=== PATIENT | male | born 1965 | race Two or more races ===

== ENCOUNTER 2023-07-25 15:21 | Inpatient (IN) | payer OTHER ==
[2023-07-25 17:35] VITALS: BMI 22.9
[2023-07-25] MEDS ORDERED: ACETAMINOPHEN 325 MG TABLET (FP) PO PRN (18:22)
[2023-07-25] MEDS ORDERED: BENZONATATE 200 MG CAPSULE PO PRN (18:22)
[2023-07-25] MEDS ORDERED: MAG HYDROX/AL HYDROX/SIMETH 30 ML UNIT-DOSE CUP PO PRN (18:22)
[2023-07-25] MEDS ORDERED: guaiFENesin 600 MG TABLET.ER (FP) PO PRN (18:22)
[2023-07-25] MEDS ORDERED: LOPERAMIDE HCL 2 MG CAPSULE PO PRN (18:22)
[2023-07-25] MEDS ORDERED: POLYETHYLENE GLYCOL (HEALTHYLAX) 3350 17 GM PACKET PO PRN (18:22)
[2023-07-25] MEDS ORDERED: NICOTINE POLACRILEX 2 MG LOZENGE BC PRN (18:22)
[2023-07-25] MEDS ORDERED: BENZOCAINE/MENTHOL (CHLORASEPTIC ) LOZENGE MM PRN (18:22)
[2023-07-25] MEDS ORDERED: NICOTINE POLACRILEX 2 MG GUM BUC PRN (18:22)
[2023-07-25] MEDS ORDERED: DICYCLOMINE HCL 10 MG CAPSULE PO PRN (18:22)
[2023-07-25] MEDS ORDERED: ONDANSETRON *ODT* 4 MG TABLET SL PRN (18:22)
[2023-07-25] MEDS ORDERED: IBUPROFEN 400 MG TABLET (FP) PO PRN (18:22)
[2023-07-25] MEDS ORDERED: BISMUTH SUBSALICYLATE 524 MG/30 ML PO PRN (18:22)
[2023-07-25] MEDS ORDERED: IBUPROFEN 600 MG TABLET (FP) PO ONE (18:49)
[2023-07-25] MEDS: IBUPROFEN 600 MG TABLET (FP) PO ONE (18:51)
[2023-07-25] MEDS: P-EPHED 60MG/TRIPROLIDI 2.5MG TABLET PO PRN (22:11)
[2023-07-25] MEDS: MELATONIN 5 MG TABLETS PO SCH (22:12)
[2023-07-25] MEDS: THIAMINE 100 MG TABLET PO SCH (22:12)
[2023-07-26] MEDS: PRENATAL VITAMINS W/ FOLIC ACID TABLET (FP) PO SCH (10:30)
[2023-07-26 11:50] LABS: CHLORIDE 112 mmol/L (98-107); POTASSIUM 4.1 mmol/L (3.5-5.1); SODIUM 142 mmol/L (136-145)
[2023-07-26 11:52] LABS: CALCIUM 8.2 mg/dL (8.5-10.1)
[2023-07-26 11:53] LABS: ALBUMIN 2.2 g/dl (3.4-5.0); ANION GAP 3 mmol/L (4-13); CO2 28 mmol/L (21-32); GLUCOSE,RANDOM 86 mg/dL (74-106)
[2023-07-26 11:56] LABS: CREATININE 0.8 mg/dL (0.55-1.3); SGOT/AST 18 U/L (15-37); SGPT/ALT 25 U/L (13-61)
[2023-07-26 11:57] LABS: BILIRUBIN,TOTAL 0.4 mg/dL (0.2-1); TOT PROT 5.6 g/dl (6.4-8.2)
[2023-07-26 11:59] LABS: ALK PHOS 86 U/L (45-117)
[2023-07-26 12:01] LABS: HEMOGLOBIN 13.2 GM/dL (11.7-16.9); MCH 33.5 pg (25.7-33.7); MCHC 34.8 g/dl (32.0-35.9); MEAN CELL VOLUME 96.2 fl (80-96); MEAN PLT VOLUME 6.9 fl (7.5-11.1); PLATELET COUNT 269 10^3/uL (134-434); RBC 3.95 M/mm3 (4.00-5.60); RDW 12.8 % (11.9-15.9)
[2023-07-26] MEDS: diazePAM 5 MG TABLET PO SCH (17:44)
[2023-07-26] MEDS: MAGNESIUM HYDROX 2400MG/30ML ORAL SUSPENSION 30 ML CUP PO PRN (17:45)
[2023-07-27] MEDS: diazePAM 5 MG TABLET PO SCH (05:21)
[2023-07-27] MEDS: hydrOXYzine PAMOATE 25 MG CAPSULE (FP) PO PRN (09:14)
[2023-07-27] MEDS: METHOCARBAMOL 500 MG TABLET PO PRN (09:14)
[2023-07-28] MEDS: diazePAM 5 MG TABLET PO SCH (05:23)
[2023-07-28 11:52] LABS: BASO % 1.3 % (0-2.0); HEMATOCRIT 38.8 % (35.4-49); HEMOGLOBIN 13.5 GM/dL (11.7-16.9); LYMPH % 31.5 % (8-40); MCHC 34.7 g/dl (32.0-35.9); MEAN CELL VOLUME 95.3 fl (80-96); MEAN PLT VOLUME 7.2 fl (7.5-11.1); MONO % 13.8 % (3.8-10.2); NEUT % 49.4 % (42.8-82.8); PLATELET COUNT 270 10^3/uL (134-434); RBC 4.07 M/mm3 (4.00-5.60); WHITE BLOOD COUNT 4.9 K/mm3 (4.0-10.0)
[2023-07-29] MEDS: IBUPROFEN 600 MG TABLET (FP) PO PRN (05:27)
[2023-07-29] MEDS: diazePAM 5 MG TABLET PO ONE (05:27)
[2023-07-29 09:03] VITALS: BP 127/81; PULSE 70; RESP 18; TEMP 97.1
== END 2023-07-29 10:53 | disposition home or self-care (01) | DRG 774 ==
LOC: YASAS 15:21 → Y6N 18:45
PROVIDERS: ADMIT Allergy & Immunology; ATTEND Surgery
PROC: HZ2ZZZZ Detoxification Services for Substance Abuse Treatment (ICD-10-PCS; principal; 2023-07-25)
DX: F10.230 Alcohol dependence with withdrawal, uncomplicated (principal); F14.20 Cocaine dependence, uncomplicated; F12.20 Cannabis dependence, uncomplicated; F17.210 Nicotine dependence, cigarettes, uncomplicated; F19.282 Other psychoactive substance dependence with psychoactive substance-induced sleep disorder; F19.280 Other psychoactive substance dependence with psychoactive substance-induced anxiety disorder; F41.9 Anxiety disorder, unspecified; F90.9 Attention-deficit hyperactivity disorder, unspecified type
CPT/HCPCS: 36415; 71045-TC-FY; 80053; 80305; 80307; 85025; 85027; 86780; 93005; 93010

== ENCOUNTER 2024-06-17 15:39 | Inpatient (IN) | payer OTHER ==
[2024-06-17 16:55] VITALS: BMI 21.8
[2024-06-17] MEDS ORDERED: BENZOCAINE/MENTHOL (CHLORASEPTIC ) LOZENGE MM PRN (17:16)
[2024-06-17] MEDS ORDERED: guaiFENesin 600 MG TABLET.ER (FP) PO PRN (17:16)
[2024-06-17] MEDS ORDERED: MAG HYDROX/AL HYDROX/SIMETH 30 ML UNIT-DOSE CUP PO PRN (17:16)
[2024-06-17] MEDS ORDERED: IBUPROFEN 400 MG TABLET (FP) PO PRN (17:16)
[2024-06-17] MEDS ORDERED: ACETAMINOPHEN 325 MG TABLET (FP) PO PRN (17:16)
[2024-06-17] MEDS ORDERED: P-EPHED 60MG/TRIPROLIDI 2.5MG TABLET PO PRN (17:16)
[2024-06-17] MEDS ORDERED: NALOXONE (NARCAN) HCL 4 MG/0.1 ML SPRAY NS PRN (17:16)
[2024-06-17] MEDS ORDERED: NICOTINE POLACRILEX 2 MG GUM BUC PRN (17:16)
[2024-06-17] MEDS ORDERED: MAGNESIUM HYDROX 2400MG/30ML ORAL SUSPENSION 30 ML CUP PO PRN (17:16)
[2024-06-17] MEDS ORDERED: POLYETHYLENE GLYCOL (HEALTHYLAX) 3350 17 GM PACKET PO PRN (17:16)
[2024-06-17] MEDS ORDERED: LOPERAMIDE HCL 2 MG CAPSULE PO PRN (17:16)
[2024-06-17] MEDS ORDERED: BENZONATATE 200 MG CAPSULE PO PRN (17:16)
[2024-06-17] MEDS ORDERED: NICOTINE POLACRILEX 2 MG LOZENGE BC PRN (17:16)
[2024-06-17] MEDS ORDERED: BACITRACIN ZINC 15 GM TUBE TOPICAL OINTMENT TP SCH (18:00)
[2024-06-17] MEDS ORDERED: BACITRACIN 0.9 GM PACKET TP SCH (19:06)
[2024-06-17] MEDS: BACITRACIN ZINC 15 GM TUBE TOPICAL OINTMENT TP SCH (21:15)
[2024-06-17] MEDS: IBUPROFEN 600 MG TABLET (FP) PO PRN (21:32)
[2024-06-17] MEDS: MELATONIN 5 MG TABLETS PO SCH (21:33)
[2024-06-17] MEDS: THIAMINE 100 MG TABLET PO SCH (21:33)
[2024-06-18 06:00] VITALS: BP 103/63; PULSE 61; RESP 17; TEMP 98.6
[2024-06-18 09:45] LABS: HEMATOCRIT 40.6 % (40.1-51.0); MCHC 34.5 g/dl (32.3-36.5); MEAN CELL VOLUME 94.6 fl (79.0-92.2); MEAN PLT VOLUME 9.7 fl (9.4-12.4); PLATELET COUNT # 209 x10^3/uL (163-337); RDW 12.2 % (12.2-16.1)
[2024-06-18 09:48] LABS: CHLORIDE 111 mmol/L (98-107); SODIUM 142 mmol/L (136-145)
[2024-06-18 09:56] LABS: CALCIUM 8.1 mg/dL (8.5-10.1)
[2024-06-18 09:58] LABS: ALBUMIN 2.5 g/dl (3.4-5.0); ANION GAP 5 mmol/L (4-13); BLOOD UREA NITROGEN 17.8 mg/dL (7-18); CO2 26 mmol/L (21-32); GLUCOSE,RANDOM 87 mg/dL (74-106)
[2024-06-18 09:59] LABS: SGPT/ALT 24 U/L (13-61)
[2024-06-18 10:00] LABS: BILIRUBIN,TOTAL 0.5 mg/dL (0.2-1); CREATININE 0.9 mg/dL (0.55-1.3); SGOT/AST 19 U/L (15-37); TOT PROT 5.4 g/dl (6.4-8.2)
[2024-06-18] MEDS ORDERED: PRENATAL VITAMINS W/ FOLIC ACID TABLET (FP) PO SCH (10:00)
[2024-06-18 10:01] LABS: ALK PHOS 92 U/L (45-117)
[2024-06-18 15:50] LABS: SYPHILIS W/ RPR CONF NON-REACTIVE (NONREACTIVE)
[2024-06-18 16:19] LABS: HCV DIAGNOSTIC IN-HOUSE W/RFLX NON-REACTIVE (NONREACTIVE)
== END 2024-06-18 10:19 | disposition left against medical advice (07) | DRG 772 ==
LOC: YASAS 15:39 → Y3NR 17:56 → Y3W 06-18 10:11
PROVIDERS: ADMIT Psychiatry & Neurology Pain Medicine; ATTEND Psychiatry & Neurology Pain Medicine
PROC: HZ42ZZZ Group Counseling for Substance Abuse Treatment, Cognitive-Behavioral (ICD-10-PCS; principal; 2024-06-17)
DX: F14.20 Cocaine dependence, uncomplicated (principal); F10.20 Alcohol dependence, uncomplicated; F12.20 Cannabis dependence, uncomplicated; F17.210 Nicotine dependence, cigarettes, uncomplicated; F91.8 Other conduct disorders; Z91.199 Patient's noncompliance with other medical treatment and regimen due to unspecified reason
CPT/HCPCS: 36415; 80053; 80305; 80307; 85027; 86780; 86803; 87811; 93005; 93010